=== PATIENT | male | born 1945 | race Caucasian/White ===

== ENCOUNTER 2016-10-01 07:32 | Outpatient (CLI) | payer MEDICARE, OTHER | END 2016-10-01 07:33 | disposition home or self-care (01) | DX: I25.10 Atherosclerotic heart disease of native coronary artery without angina pectoris (principal); Z79.899 Other long term (current) drug therapy; Z12.5 Encounter for screening for malignant neoplasm of prostate; I10 Essential (primary) hypertension; R73.09 Other abnormal glucose | CPT/HCPCS: 36415; 80053; 80061; 83036; 85025; G0103 ==

== ENCOUNTER 2017-04-09 07:13 | Outpatient (CLI) | payer MEDICARE, OTHER ==
[2017-04-09 08:01] LABS: LDL CHOLESTEROL,DIRECT 90 mg/dL
== END 2017-04-09 07:14 | disposition home or self-care (01) ==
LOC: LAB 07:13
PROVIDERS: ATTEND Internal Medicine
DX: E78.2 Mixed hyperlipidemia (principal)
CPT/HCPCS: 36415; 84450; 84460

== ENCOUNTER 2017-06-11 07:31 | Outpatient (CLI) | payer MEDICARE, OTHER ==
[2017-06-11 08:06] LABS: HDL CHOLESTEROL 46 mg/dL; LDL CHOLESTEROL,DIRECT 85 mg/dL
== END 2017-06-11 07:32 | disposition home or self-care (01) ==
LOC: LAB 07:31
PROVIDERS: ATTEND Internal Medicine
DX: E78.5 Hyperlipidemia, unspecified (principal)
CPT/HCPCS: 36415; 83718; 84450; 84460

== ENCOUNTER 2017-09-14 12:48 | Emergency (ER) | payer MEDICARE, OTHER ==
[2017-09-14 13:22] LABS: BASOPHILS # (AUTO) 0.1 10^3/uL (0.0-0.1); BASOPHILS % (AUTO) 0.7 %; EOSINOPHILS # (AUTO) 0.1 10^3/uL (0.0-0.7); HGB - HEMOGLOBIN 16.9 g/dL (14.0-18.0); LYMPHOCYTES # (AUTO) 2.1 10^3/uL (1.5-3.5); LYMPHOCYTES % (AUTO) 27.3 %; MEAN CORPUSCULAR HEMOGLOBIN 31.3 pg (27.0-31.0); MEAN CORPUSCULAR HGB CONC 34.9 g/dL (32.0-36.0); MEAN CORPUSCULAR VOLUME 89.7 fL (80.0-94.0); MEAN PLATELET VOLUME 8.4 fL (7.4-11.4); MONOCYTES # (AUTO) 0.4 10^3/uL (0.0-1.0); MONOCYTES % (AUTO) 5.7 %; NEUTROPHILS % (AUTO) 65.3 %; PLT - PLATELET COUNT 173 10^3/uL (130-450); RED BLOOD COUNT 5.39 10^6/uL (4.70-6.10); RED CELL DISTRIBUTION WIDTH 13.4 % (12.0-15.0); WHITE BLOOD COUNT 7.6 x10^3/uL (4.8-10.8)
[2017-09-14 13:40] LABS: ALBUMIN 4.2 g/dL (3.2-5.5); ALBUMIN/GLOBULIN RATIO 1.6 (1.0-2.2); BILIRUBIN,TOTAL 1.5 mg/dL (0.2-1.0); TOTAL PROTEIN 6.9 g/dL (6.7-8.2)
--- NOTE | 2017-09-14 13:54 | XRAY Report ---
EXAM: CHEST RADIOGRAPHY EXAM DATE: 09/14/2017 01:40 PM. CLINICAL HISTORY: Chest pain. COMPARISON: None. TECHNIQUE: 2 views. FINDINGS: Lungs/Pleura: No focal consolidation evident. No pleural effusion. No pneumothorax. Normal volumes. Mediastinum: Heart and mediastinal contours are unremarkable. Other: None. IMPRESSION: No radiographically apparent acute abnormality in the chest. [facility] Referring Provider Line: [phone] SITE ID: [id number]
[2017-09-14 13:58] VITALS: BP 134/94
--- NOTE | 2017-09-14 14:11 | ED Physician Documentation ---
PD HPI CHEST PAIN - Stated complaint Stated Complaint: CP - Chief complaint Chief Complaint: Cardiac - History obtained from History obtained from: Patient - History of Present Illness Timing - onset: Other (He had an TX with 2 stents about 9 years ago. Last stress test 5 years ago negative per him. He had 2 episodes of chest pain today , one from 6 to 7 AM at rest, in bed. Substernal chest burning, nonradiating. A second episode at 11:30 AM, it was similar lasted about 20 minutes. During that episode he did go outside and walk around and try to walk up a hill to see if he got worse, it stayed constant but did not worsen. He was a little short of breath with that though. He is pain-free at this juncture.) Review of Systems Constitutional: denies: Fever, Chills, Sweats Cardiac: reports: Chest pain / pressure. denies: Palpitations, Pedal edema, Calf pain Respiratory: denies: Cough, Hemoptysis, Wheezing GI: denies: Abdominal Pain, Nausea PD PAST MEDICAL HISTORY - Past Medical History Cardiovascular: Hypertension, [place] Respiratory: None Endocrine/Autoimmune: None GI: None, Hemorrhoids : Benign prostate hypertrophy HEENT: None Psych: None Musculoskeletal: None Derm: None - Past Surgical History Past Surgical History: Yes General: Colonoscopy Cardiovascular: Coronary stent, Cardiac catheterization HEENT: Tonsil/Adenoidectomy - Present Medications Home Medications: Ambulatory Orders Medication Instructions Recorded Confirmed Hydrochlorothiazide 12.5 mg PO DAILY 11/28/13 09/14/17 Nitroglycerin [Nitrostat] 0.4 mg SL ONCE PRN 11/28/13 09/14/17 Carvedilol [Coreg] 25 mg PO DAILY 09/14/17 09/14/17 Rosuvastatin Calcium [Crestor] 10 mg PO DAILY 09/14/17 09/14/17 - Allergies Allergies/Adverse Reactions: Allergies Allergy/AdvReac Type Severity Reaction Status Date / Time No Known Drug Allergies Allergy Verified 09/14/17 13:29 - Social History Does the pt smoke?: No Smoking Status: Former smoker Does the pt drink ETOH?: Yes ETOH Use: Wine Does the pt have substance abuse?: No - Immunizations Immunizations are current?: Yes PD ED PE NORMAL - Vitals Vital signs reviewed: Yes - General General: Alert and oriented X 3, No acute distress - Neck Neck: Supple, no meningeal sign, No bony TTP - Cardiac Cardiac: RRR, No murmur - Respiratory Respiratory: No respiratory distress, Clear bilaterally - Abdomen Abdomen: Soft, Non tender - Extremities Extremities: No edema, No calf tenderness / cord - Neuro Neuro: Alert and oriented X 3, Normal speech - Psych Psych: Normal mood, Normal affect Results - Vitals Vitals: Vital Signs - 24 hr 09/14/17 09/14/17 12:55 13:56 Temperature 36.7 C Heart Rate 67 63 Respiratory 18 18 Rate Blood Pressure 162/92 H 134/94 H O2 Saturation 98 97 Oxygen O2 Source Room air - EKG (time done) 1255 Rate: Rate (enter#) (60s) Rhythm: NSR [place]: Normal Intervals: Normal [place] QRS: Normal Ischemia: Normal ST segments Computer interpretation: Agree with computer - Labs Labs: Laboratory Tests 09/14/17 09/14/17 09/14/17 13:17 13:17 13:17 WBC 7.6 RBC 5.39 Hgb 16.9 Hct 48.4 MCV 89.7 MCH 31.3 H MCHC 34.9 RDW 13.4 Plt Count 173 MPV 8.4 Neut # 5.0 Lymph # 2.1 [place] # 0.4 Eos # 0.1 Baso # 0.1 Absolute Nucleated RBC 0.00 Nucleated RBC % 0.0 Sodium 138 Potassium 4.0 Chloride 102 Carbon Dioxide 26 Anion Gap 10.0 BUN 21 H Creatinine 1.0 Estimated GFR (MDRD) 74 L Glucose 153 H Calcium 9.0 Total Bilirubin 1.5 H AST 25 ALT 29 Alkaline Phosphatase 35 L Troponin I < 0.04 Total Protein 6.9 Albumin 4.2 Globulin 2.7 Albumin/Globulin Ratio 1.6 Lipase 27 PD MEDICAL DECISION MAKING - ED course ED course: 9-year-old gentleman with resolved chest pain, somewhat atypical and it did not worsen with exertion. That said he has a compelling history otherwise. Spoke with his primary care physician, Dr. Leahy at 2:10 PM who will schedule an expedited stress test. Wants him to continue his beta blockade, plans nuclear component. Departure - Departure Disposition: Home, Self Care Clinical Impression: Chest pain Qualifiers: Chest pain type: unspecified Qualified Code(s): R07.9 - Chest pain, unspecified Condition: Good Record reviewed to determine appropriate education?: Yes Instructions: ED Chest Pain Atypical Unkn Cause Comments: Continue your coreg, And the other medication. Dr Leahy will call you to schedule the stress. Return immediately (do not try to walk uphill) if you have recurrent chest pain.
== END 2017-09-14 14:21 | disposition home or self-care (01) ==
LOC: ED 12:48
DX: R07.9 Chest pain, unspecified (principal); I25.2 Old myocardial infarction; Z95.5 Presence of coronary angioplasty implant and graft
CPT/HCPCS: 36415; 71046; 80053; 83690; 84484; 85025; 93005; 99283; 99284

== ENCOUNTER 2017-09-28 10:47 | Outpatient (CLI) | payer MEDICARE, OTHER ==
[2017-09-28] MEDS: ADENOSINE 12 MG/4 ML VIAL IVP ONE (14:53)
[2017-09-28 15:05] VITALS: BP 140/86
--- NOTE | 2017-09-29 09:01 | Nuclear Medicine Report ---
EXAM: NUCLEAR MEDICINE MYOCARDIAL PERFUSION STRESS AND REST EXAM EXAM DATE: 09/28/2017 03:04 PM. CLINICAL HISTORY: Coronary artery disease. COMPARISON: Chest x-ray 09/14/2017, cardiac blood pool exam 04/20/2007. TECHNIQUE: Patient given 10.1 mCi technetium 99m sestamibi IV for the rest portion of the study. Card iac SPECT scintigraphy performed with multiplanar reformats. After an appropriate delay, patient given intravenous adenosine for pharmacologic stress. After this, patient given 42.8 mCi technetium 99m sestamibi IV. Cardiac gated SPECT scintigraphy performed with multiplanar reformats, wall motion analysis and left ventricular ejection fraction estimation. FINDINGS: There is a moderate-sized focus of mild to moderate decreased activity in the inferolateral basilar l eft ventricle on stress which partially normalizes on rest. Small core of moderate decreased activity in the inferior basilar wall, fixed on stress and rest. Moderate decreased activity of the apex, fixed. Wall motion demonstrates mild inferior basilar hypokinesia. Left ventricular ejection fraction estimated at 61%. IMPRESSION: 1. Moderate-sized focus of mild to moderate ischemia inferior lateral basilar wall. 2. Small inferior basilar infarct. 3. Apical infarct versus apical thinning. 4. Left ventricular ejection fraction estimated at 61%. [facility] Referring Provider Line: [phone] SITE ID: [id number]
--- NOTE | 2017-09-29 09:07 | CARDIAC PROCEDURE NOTE ---
DATE OF SERVICE: 09/28/2017 Physician: Chuy Leahy MD DATE OF SERVICE: 09/28/2017 PROCEDURE: Adenosine infusion for sestamibi myocardial imaging. INDICATIONS: A 72-year-old male with known coronary disease and a recent episode of recurrent chest pain. He is on beta blockers. PROCEDURE IN DETAIL: The patient received adenosine and sestamibi per nuclear medicine protocol. He experienced some vague shoulder and back discomfort, a sense of breathlessness, and some facial flushing. Otherwise, there were no untoward side effects. His EKG at the onset demonstrated very slight T-wave abnormality in lead III. Towards the end of the infusion and immediately thereafter, there were some subtle nondiagnostic ST and T-wave changes in lead III and aVF. IMPRESSION: Unremarkable adenosine infusion performed for sestamibi myocardial imaging. See nuclear medicine report for details. TD: 09/29/2017 08:33
== END 2017-09-28 10:48 | disposition home or self-care (01) ==
LOC: DI 10:47
PROVIDERS: ATTEND Internal Medicine
DX: I25.9 Chronic ischemic heart disease, unspecified (principal); I25.2 Old myocardial infarction
CPT/HCPCS: 78452; 93017; A9500; J0153

== ENCOUNTER 2017-10-23 09:09 | Outpatient (CLI) | payer MEDICARE, OTHER ==
[2017-10-23 09:51] LABS: BASOPHILS # (AUTO) 0.1 10^3/uL (0.0-0.1); BASOPHILS % (AUTO) 0.8 %; EOSINOPHILS % (AUTO) 0.8 %; HGB - HEMOGLOBIN 17.1 g/dL (14.0-18.0); LYMPHOCYTES # (AUTO) 1.6 10^3/uL (1.5-3.5); LYMPHOCYTES % (AUTO) 26.8 %; MEAN CORPUSCULAR HEMOGLOBIN 31.2 pg (27.0-31.0); MEAN CORPUSCULAR HGB CONC 34.9 g/dL (32.0-36.0); MEAN CORPUSCULAR VOLUME 89.4 fL (80.0-94.0); MEAN PLATELET VOLUME 8.6 fL (7.4-11.4); MONOCYTES # (AUTO) 0.4 10^3/uL (0.0-1.0); MONOCYTES % (AUTO) 6.7 %; NEUTROPHILS % (AUTO) 64.9 %; PLT - PLATELET COUNT 152 10^3/uL (130-450); RED BLOOD COUNT 5.48 10^6/uL (4.70-6.10); RED CELL DISTRIBUTION WIDTH 13.3 % (12.0-15.0); WHITE BLOOD COUNT 6.1 x10^3/uL (4.8-10.8)
[2017-10-23 10:00] LABS: CALCIUM 8.6 mg/dL (8.5-10.3)
== END 2017-10-23 09:10 | disposition home or self-care (01) ==
LOC: LAB 09:09
PROVIDERS: ATTEND Internal Medicine Cardiovascular Disease
DX: I25.10 Atherosclerotic heart disease of native coronary artery without angina pectoris (principal); I20.8 Other forms of angina pectoris
CPT/HCPCS: 36415; 80048; 85025

== ENCOUNTER 2017-11-30 08:10 | Outpatient (CLI) | payer MEDICARE, OTHER ==
[2017-11-30 08:49] LABS: CALCIUM 8.8 mg/dL (8.5-10.3)
== END 2017-11-30 08:11 | disposition home or self-care (01) ==
LOC: LAB 08:10
PROVIDERS: ATTEND Internal Medicine Cardiovascular Disease
DX: I25.10 Atherosclerotic heart disease of native coronary artery without angina pectoris (principal); I10 Essential (primary) hypertension; E78.00 Pure hypercholesterolemia, unspecified; Z95.9 Presence of cardiac and vascular implant and graft, unspecified
CPT/HCPCS: 36415; 80048

== ENCOUNTER 2017-12-22 07:15 | Outpatient (CLI) | payer MEDICARE, OTHER ==
[2017-12-22 07:54] LABS: ALBUMIN 4.1 g/dL (3.2-5.5); ALBUMIN/GLOBULIN RATIO 1.8 (1.0-2.2); ALKALINE PHOSPHATASE 33 IU/L (42-121); ALT ALANINE AMINOTRANSFERASE 33 IU/L (10-60); AST ASPARTATE AMINOTRANSFERASE 30 IU/L (10-42); BUN - BLOOD UREA NITROGEN 19 mg/dL (6-20); CALCIUM 8.7 mg/dL (8.5-10.3); CARBON DIOXIDE - CO2 29 mmol/L (21-32); CHLORIDE 105 mmol/L (101-111); CHOL/HDL RATIO 3.1 (<5.0); CHOLESTEROL 137 mg/dL; CREATININE 0.8 mg/dL (0.6-1.2); GFR - MDRD 96 (>89); GLUCOSE 101 mg/dL (70-100); HDL CHOLESTEROL 44 mg/dL; LDL CHOLESTEROL,CALCULATED 72 mg/dL; LDL/HDL RATIO 1.6 (<3.6); SODIUM 140 mmol/L (135-145); TOTAL PROTEIN 6.4 g/dL (6.7-8.2); VLDL CHOLESTEROL 21 mg/dL
[2017-12-22 08:07] LABS: HB2 TOTAL 17.5 g/dL; HEMOGLOBIN A1C 0.67 g/dL; HEMOGLOBIN A1C % 5.7 % (4.6-6.2)
== END 2017-12-22 07:16 | disposition home or self-care (01) ==
LOC: LAB 07:15
PROVIDERS: ATTEND Internal Medicine
DX: I25.10 Atherosclerotic heart disease of native coronary artery without angina pectoris (principal); E78.5 Hyperlipidemia, unspecified; R73.02 Impaired glucose tolerance (oral)
CPT/HCPCS: 36415; 80053; 80061; 83036; 83721

== ENCOUNTER 2019-03-11 07:18 | Outpatient (CLI) | payer MEDICARE, OTHER ==
[2019-03-11 07:51] LABS: BASOPHILS # (AUTO) 0.1 10^3/uL (0.0-0.1); BASOPHILS % (AUTO) 0.8 %; EOSINOPHILS # (AUTO) 0.1 10^3/uL (0.0-0.7); EOSINOPHILS % (AUTO) 1.6 %; HGB - HEMOGLOBIN 16.7 g/dL (14.0-18.0); LYMPHOCYTES # (AUTO) 1.6 10^3/uL (1.5-3.5); LYMPHOCYTES % (AUTO) 26.6 %; MEAN CORPUSCULAR HEMOGLOBIN 31.2 pg (27.0-31.0); MEAN CORPUSCULAR HGB CONC 34.3 g/dL (32.0-36.0); MEAN CORPUSCULAR VOLUME 90.9 fL (80.0-94.0); MEAN PLATELET VOLUME 9.8 fL (7.4-11.4); MONOCYTES # (AUTO) 0.5 10^3/uL (0.0-1.0); MONOCYTES % (AUTO) 7.9 %; NEUTROPHILS # (AUTO) 3.8 10^3/uL (1.5-6.6); NEUTROPHILS % (AUTO) 62.8 %; PLT - PLATELET COUNT 172 10^3/uL (130-450); RED BLOOD COUNT 5.36 10^6/uL (4.70-6.10); RED CELL DISTRIBUTION WIDTH 12.7 % (12.0-15.0); WHITE BLOOD COUNT 6.1 x10^3/uL (4.8-10.8)
[2019-03-11 08:02] LABS: ALBUMIN/GLOBULIN RATIO 1.5 (1.0-2.2); ALKALINE PHOSPHATASE 32 IU/L (42-121); ALT ALANINE AMINOTRANSFERASE 20 IU/L (10-60); AST ASPARTATE AMINOTRANSFERASE 19 IU/L (10-42); BILIRUBIN,TOTAL 1.5 mg/dL (0.2-1.0); BUN - BLOOD UREA NITROGEN 22 mg/dL (6-20); CARBON DIOXIDE - CO2 25 mmol/L (21-32); CHLORIDE 106 mmol/L (101-111); CHOLESTEROL 151 mg/dL; CREATININE 0.8 mg/dL (0.6-1.2); GFR - MDRD 95 (>89); GLUCOSE 114 mg/dL (70-100); HDL CHOLESTEROL 51 mg/dL; LDL CHOLESTEROL,CALCULATED 77 mg/dL; LDL/HDL RATIO 1.5 (<3.6); SODIUM 141 mmol/L (135-145); TOTAL PROTEIN 6.6 g/dL (6.7-8.2); VLDL CHOLESTEROL 23 mg/dL
[2019-03-11 09:05] LABS: HB2 TOTAL 17.8 g/dL; HEMOGLOBIN A1C 0.71 g/dL; HEMOGLOBIN A1C % 5.8 % (4.6-6.2)
== END 2019-03-11 07:19 | disposition home or self-care (01) ==
LOC: LAB 07:18
PROVIDERS: ATTEND Family Medicine
DX: I10 Essential (primary) hypertension (principal); I25.10 Atherosclerotic heart disease of native coronary artery without angina pectoris; R73.09 Other abnormal glucose; E78.5 Hyperlipidemia, unspecified
CPT/HCPCS: 36415; 80053; 80061; 83036; 83721; 84443; 85025

== ENCOUNTER 2020-11-09 07:10 | Outpatient (CLI) | payer MEDICARE, OTHER ==
[2020-11-09 07:36] LABS: BASOPHILS % (AUTO) 0.6 %; EOSINOPHILS # (AUTO) 0.1 10^3/uL (0.0-0.7); EOSINOPHILS % (AUTO) 1.9 %; HCT - HEMATOCRIT 48.3 % (42.0-52.0); HGB - HEMOGLOBIN 16.5 g/dL (14.0-18.0); LYMPHOCYTES % (AUTO) 32.5 %; MEAN CORPUSCULAR HEMOGLOBIN 31.4 pg (27.0-31.0); MEAN CORPUSCULAR HGB CONC 34.2 g/dL (32.0-36.0); MEAN PLATELET VOLUME 9.9 fL (7.4-11.4); MONOCYTES # (AUTO) 0.5 10^3/uL (0.0-1.0); MONOCYTES % (AUTO) 7.7 %; NEUTROPHILS # (AUTO) 3.6 10^3/uL (1.5-6.6); NEUTROPHILS % (AUTO) 57.1 %; PLT - PLATELET COUNT 182 10^3/uL (130-450); RED BLOOD COUNT 5.25 10^6/uL (4.70-6.10); RED CELL DISTRIBUTION WIDTH 12.9 % (12.0-15.0); WHITE BLOOD COUNT 6.2 x10^3/uL (4.8-10.8)
[2020-11-09 07:47] LABS: ALBUMIN 3.9 g/dL (3.2-5.5); ALBUMIN/GLOBULIN RATIO 1.3 (1.0-2.2); ALKALINE PHOSPHATASE 32 IU/L (42-121); ALT ALANINE AMINOTRANSFERASE 26 IU/L (10-60); AST ASPARTATE AMINOTRANSFERASE 20 IU/L (10-42); BILIRUBIN,TOTAL 1.4 mg/dL (0.2-1.0); BUN - BLOOD UREA NITROGEN 28 mg/dL (6-20); CALCIUM 9.1 mg/dL (8.5-10.3); CARBON DIOXIDE - CO2 25 mmol/L (21-32); CHLORIDE 104 mmol/L (101-111); CHOL/HDL RATIO 3.1 (<5.0); CHOLESTEROL 171 mg/dL; GFR - MDRD 73 (>89); GLUCOSE 117 mg/dL (70-100); HDL CHOLESTEROL 55 mg/dL; LDL CHOLESTEROL,CALCULATED 89 mg/dL; LDL/HDL RATIO 1.6 (<3.6); SODIUM 139 mmol/L (135-145); TRIGLYCERIDES 133 mg/dL; VLDL CHOLESTEROL 27 mg/dL
[2020-11-09 07:58] LABS: THYROID STIMULATING HORMONE 3.03 uIU/mL (0.34-5.60)
== END 2020-11-09 07:11 | disposition home or self-care (01) ==
LOC: LAB 07:10
PROVIDERS: ATTEND Family Medicine
DX: N40.0 Benign prostatic hyperplasia without lower urinary tract symptoms (principal); I25.10 Atherosclerotic heart disease of native coronary artery without angina pectoris; I10 Essential (primary) hypertension; E78.5 Hyperlipidemia, unspecified
CPT/HCPCS: 36415; 80053; 80061; 83721; 84153; 84443; 85025

== ENCOUNTER 2021-11-27 07:38 | Outpatient (CLI) | payer MEDICARE, OTHER ==
[2021-11-27 07:52] LABS: BASOPHILS % (AUTO) 0.6 %; EOSINOPHILS # (AUTO) 0.1 10^3/uL (0.0-0.7); EOSINOPHILS % (AUTO) 1.4 %; HCT - HEMATOCRIT 46.5 % (42.0-52.0); HGB - HEMOGLOBIN 15.9 g/dL (14.0-18.0); LYMPHOCYTES # (AUTO) 1.3 10^3/uL (1.5-3.5); LYMPHOCYTES % (AUTO) 26.5 %; MEAN CORPUSCULAR HEMOGLOBIN 30.5 pg (27.0-31.0); MEAN CORPUSCULAR HGB CONC 34.2 g/dL (32.0-36.0); MEAN CORPUSCULAR VOLUME 89.3 fL (80.0-94.0); MEAN PLATELET VOLUME 9.8 fL (7.4-11.4); MONOCYTES # (AUTO) 0.4 10^3/uL (0.0-1.0); MONOCYTES % (AUTO) 8.4 %; NEUTROPHILS # (AUTO) 3.1 10^3/uL (1.5-6.6); NEUTROPHILS % (AUTO) 63.1 %; PLT - PLATELET COUNT 189 10^3/uL (130-450); RED BLOOD COUNT 5.21 10^6/uL (4.70-6.10); RED CELL DISTRIBUTION WIDTH 12.7 % (12.0-15.0)
[2021-11-27 08:34] LABS: ALBUMIN 3.9 g/dL (3.2-5.5); ALBUMIN/GLOBULIN RATIO 1.3 (1.0-2.2); ALKALINE PHOSPHATASE 30 IU/L (42-121); ALT ALANINE AMINOTRANSFERASE 21 IU/L (10-60); AST ASPARTATE AMINOTRANSFERASE 19 IU/L (10-42); BILIRUBIN,TOTAL 1.4 mg/dL (0.2-1.0); BUN - BLOOD UREA NITROGEN 27 mg/dL (6-20); CALCIUM 8.7 mg/dL (8.5-10.3); CARBON DIOXIDE - CO2 25 mmol/L (21-32); CHLORIDE 106 mmol/L (101-111); CHOL/HDL RATIO 2.8 (<5.0); CHOLESTEROL 146 mg/dL; GFR - MDRD 73 (>89); GLUCOSE 112 mg/dL (70-100); HDL CHOLESTEROL 53 mg/dL; LDL CHOLESTEROL,CALCULATED 73 mg/dL; LDL/HDL RATIO 1.4 (<3.6); POTASSIUM 3.9 mmol/L (3.5-5.0); SODIUM 138 mmol/L (135-145); TOTAL PROTEIN 6.8 g/dL (6.7-8.2); TRIGLYCERIDES 98 mg/dL; VLDL CHOLESTEROL 20 mg/dL
[2021-11-27 08:48] LABS: THYROID STIMULATING HORMONE 2.42 uIU/mL (0.34-5.60)
== END 2021-11-27 07:39 | disposition home or self-care (01) ==
LOC: LAB 07:38
PROVIDERS: ATTEND Family Medicine
DX: I10 Essential (primary) hypertension (principal); I25.10 Atherosclerotic heart disease of native coronary artery without angina pectoris
CPT/HCPCS: 36415; 80053; 80061; 83721; 84443; 85025

== ENCOUNTER 2022-01-11 15:39 | Emergency (ER) | payer MEDICARE, OTHER ==
[2022-01-11 15:59] LABS: BASOPHILS % (AUTO) 0.5 %; EOSINOPHILS # (AUTO) 0.1 10^3/uL (0.0-0.7); EOSINOPHILS % (AUTO) 0.8 %; HCT - HEMATOCRIT 47.2 % (42.0-52.0); HGB - HEMOGLOBIN 16.4 g/dL (14.0-18.0); LYMPHOCYTES # (AUTO) 2.3 10^3/uL (1.5-3.5); LYMPHOCYTES % (AUTO) 27.9 %; MEAN CORPUSCULAR HEMOGLOBIN 30.9 pg (27.0-31.0); MEAN CORPUSCULAR HGB CONC 34.7 g/dL (32.0-36.0); MEAN CORPUSCULAR VOLUME 89.1 fL (80.0-94.0); MEAN PLATELET VOLUME 9.7 fL (7.4-11.4); MONOCYTES # (AUTO) 0.8 10^3/uL (0.0-1.0); NEUTROPHILS # (AUTO) 5.1 10^3/uL (1.5-6.6); NEUTROPHILS % (AUTO) 61.7 %; PLT - PLATELET COUNT 205 10^3/uL (130-450); RED CELL DISTRIBUTION WIDTH 12.7 % (12.0-15.0); WHITE BLOOD COUNT 8.3 x10^3/uL (4.8-10.8)
--- NOTE | 2022-01-11 16:04 | ED Physician Documentation ---
History of Present Illness - Stated complaint Stated Complaint: FATIGUE/CHEST TIGHTNESS - Chief complaint Chief Complaint: Cardiac - History obtained from History obtained from: Patient, Family - History of Present Illness Timing: How many days ago (5) Pain level max: 2 Pain level now: 1 - Additonal information Additional information: Patient is a 76-year-old male who presents to the emergency department complaining of chest tightness. He states been going on for the past 5 days. He has felt tired as well. He states nothing really makes it better or worse. It has been constant. Does not feel similar to his prior heart attacks. No change with palpation, movement, exertion. He has a history of cardiac stents in 2007. Review of Systems Constitutional: denies: Fever, Chills Nose: reports: Rhinorrhea / runny nose Throat: denies: Sore throat Cardiac: denies: Chest pain / pressure, Palpitations Respiratory: denies: Cough GI: denies: Abdominal Pain, Nausea, Vomiting, Diarrhea Skin: denies: Rash Musculoskeletal: denies: Neck pain, Back pain Neurologic: denies: Headache PD PAST MEDICAL HISTORY - Past Medical History Cardiovascular: Hypertension, High cholesterol, [place] Respiratory: None Endocrine/Autoimmune: None GI: Hemorrhoids : Benign prostate hypertrophy HEENT: None Psych: None Musculoskeletal: None Derm: None - Past Surgical History Past Surgical History: Yes General: Colonoscopy Cardiovascular: Coronary stent, Cardiac catheterization HEENT: Tonsil/Adenoidectomy - Present Medications Home Medications: Ambulatory Orders Medication Instructions Recorded Confirmed Nitroglycerin [Nitrostat] 0.4 mg SL ONCE PRN 11/28/13 01/11/22 hydroCHLOROthiazide 12.5 mg PO DAILY 11/28/13 01/11/22 [Hydrochlorothiazide] Rosuvastatin Calcium [Crestor] 20 mg PO DAILY 09/14/17 01/11/22 Aspirin [Aspirin EC] 81 mg PO DAILY 01/11/22 01/11/22 Carvedilol [Coreg] 6.25 mg PO BID 01/11/22 01/11/22 Valsartan [Diovan] 40 mg PO DAILY 01/11/22 01/11/22 - Allergies Allergies/Adverse Reactions: Allergies Allergy/AdvReac Type Severity Reaction Status Date / Time No Known Drug Allergies Allergy Verified 01/11/22 15:47 - Social History Does the pt smoke?: No Smoking Status: Former smoker Does the pt drink ETOH?: Yes Does the pt have substance abuse?: No - Immunizations Immunizations are current?: Yes PD ED PE NORMAL - Vitals Vital signs reviewed: Yes - General General: Alert and oriented X 3, No acute distress, Well developed/nourished - HEENT HEENT: Moist mucous membranes - Neck Neck: Supple, no meningeal sign - Cardiac Cardiac: RRR, Strong equal pulses - Respiratory Respiratory: No respiratory distress, Clear bilaterally - Abdomen Abdomen: Soft, Non tender, Non distended - Derm Derm: Warm and dry - Extremities Extremities: No edema, No calf tenderness / cord - Neuro Neuro: Alert and oriented X 3 - Psych Psych: Normal mood, Normal affect Results - Vitals Vitals: Vital Signs - 24 hr 01/11/22 01/11/22 01/11/22 15:44 16:17 17:03 Temperature 36.4 C L Heart Rate 66 61 57 L Respiratory 20 14 18 Rate Blood Pressure 161/82 H 157/82 H 151/82 H O2 Saturation 96 97 97 01/11/22 17:19 Temperature 36.6 C Heart Rate 58 L Respiratory 16 Rate Blood Pressure 151/82 H O2 Saturation 97 Oxygen O2 Source Room air - EKG (time done) 1551 Rate: Rate (enter#) (64) Rhythm: NSR [place]: Normal Intervals: Normal [place] QRS: Normal Ischemia: Normal ST segments, Q waves (III, aVF) - Labs Labs: Laboratory Tests 01/11/22 01/11/22 01/11/22 15:50 15:50 15:50 WBC 8.3 RBC 5.30 Hgb 16.4 Hct 47.2 MCV 89.1 MCH 30.9 MCHC 34.7 RDW 12.7 Plt Count 205 MPV 9.7 Neut # (Auto) 5.1 Lymph # (Auto) 2.3 [place] # (Auto) 0.8 Eos # (Auto) 0.1 Baso # (Auto) 0.0 Absolute Nucleated RBC 0.00 Nucleated RBC % 0.0 Sodium 138 Potassium 3.9 Chloride 101 Carbon Dioxide 27 Anion Gap 10.0 BUN 22 H Creatinine 1.0 Estimated GFR (MDRD) 73 L Glucose 148 H Calcium 8.9 Total Bilirubin 1.2 H AST 20 ALT 23 Alkaline Phosphatase 32 L Troponin I High Sens 8.5 Total Protein 6.9 Albumin 3.9 Globulin 3.0 Albumin/Globulin Ratio 1.3 Lipase 36 Nasal Adenovirus (PCR) Nasal B. parapertussis DNA (PCR) Nasal Coronavir 229E PCR Nasal Coronavir HKU1 PCR Nasal Coronavir NL63 PCR Nasal Coronavir OC43 PCR Nasal Enterovir/Rhinovir PCR Nasal Influenza B PCR Nasal Influenza A PCR Nasal Parainfluen 1 PCR Nasal Parainfluen 2 PCR Nasal Parainfluen 3 PCR Nasal Parainfluen 4 PCR Nasal RSV (PCR) Nasal B.pertussis DNA PCR Nasal C.pneumoniae (PCR) [place] Human Metapneumo PCR Nasal M.pneumoniae (PCR) Nasal SARS-CoV-2 (PCR) 01/11/22 16:10 WBC RBC Hgb Hct MCV MCH MCHC RDW Plt Count MPV Neut # (Auto) Lymph # (Auto) [place] # (Auto) Eos # (Auto) Baso # (Auto) Absolute Nucleated RBC Nucleated RBC % Sodium Potassium Chloride Carbon Dioxide Anion Gap BUN Creatinine Estimated GFR (MDRD) Glucose Calcium Total Bilirubin AST ALT Alkaline Phosphatase Troponin I High Sens Total Protein Albumin Globulin Albumin/Globulin Ratio Lipase Nasal Adenovirus (PCR) NOT DETECTED Nasal B. parapertussis DNA (PCR) NOT DETECTED Nasal Coronavir 229E PCR NOT DETECTED Nasal Coronavir HKU1 PCR NOT DETECTED Nasal Coronavir NL63 PCR NOT DETECTED Nasal Coronavir OC43 PCR NOT DETECTED Nasal Enterovir/Rhinovir PCR NOT DETECTED Nasal Influenza B PCR NOT DETECTED Nasal Influenza A PCR NOT DETECTED Nasal Parainfluen 1 PCR NOT DETECTED Nasal Parainfluen 2 PCR NOT DETECTED Nasal Parainfluen 3 PCR NOT DETECTED Nasal Parainfluen 4 PCR NOT DETECTED Nasal RSV (PCR) NOT DETECTED Nasal B.pertussis DNA PCR NOT DETECTED Nasal C.pneumoniae (PCR) NOT DETECTED [place] Human Metapneumo PCR NOT DETECTED Nasal M.pneumoniae (PCR) NOT DETECTED Nasal SARS-CoV-2 (PCR) NOT DETECTED - Rads (name of study) Chest x-ray Radiology: Final report received, EMP read contemporaneously, See rad report (No acute disease) PD MEDICAL DECISION MAKING - ED course Complexity details: reviewed old records, reviewed results, re-evaluated patient, considered differential (No ST elevation [place], no aortic dissection, no PE, no tension pneumothorax, no aortic aneurysm), d/w patient, d/w family ED course: Patient is well-appearing, nontoxic. Afebrile. No hypoxia. No respiratory distress. No significant findings on EKG. Negative troponin after 5 days of symptoms. Has known cardiac disease. We will have him follow-up with his doctor next week for further care. Patient is well-appearing, nontoxic. Patient counseled regarding signs and symptoms for which I believe and urgent re-evaluation would be necessary. Patient with good understanding of and agreement to plan and is comfortable going home at this time This document was made in part using voice recognition software. While efforts are made to proofread this document, sound alike and grammatical errors may occur. Departure - Departure Disposition: 01 Home, Self Care Clinical Impression: Chest pain Qualifiers: Chest pain type: unspecified Qualified Code(s): R07.9 - Chest pain, unspecified Condition: Good Instructions: ED Chest Pain Atypical Unkn Cause Follow-Up: Edwin Posadas MD [Primary Care Provider] - Within 1 week Comments: Please follow-up with your doctor for further care. Your EKG, chest x-ray and blood work did not show any acute abnormalities today. Please return if you worsen. There is a respiratory swab pending and I will call you if there are any positive results. Discharge Date/Time: 01/11/22 17:20
[2022-01-11 16:13] LABS: ALBUMIN 3.9 g/dL (3.2-5.5); ALBUMIN/GLOBULIN RATIO 1.3 (1.0-2.2); BILIRUBIN,TOTAL 1.2 mg/dL (0.2-1.0); CALCIUM 8.9 mg/dL (8.5-10.3); POTASSIUM 3.9 mmol/L (3.5-5.0); TOTAL PROTEIN 6.9 g/dL (6.7-8.2)
--- NOTE | 2022-01-11 16:47 | XRAY Report ---
PROCEDURE: Chest 1 View X-Ray INDICATIONS: Chest Pain TECHNIQUE: One view of the chest was acquired. COMPARISON: 09/14/2017 FINDINGS: Surgical changes and devices: None. Lungs and pleura: No pleural effusions or pneumothorax. Lungs are clear. Mediastinum: Mediastinal contours appear normal. Heart size is normal. Atherosclerotic vascular ca lcification noted in the aortic arch. Bones and chest wall: No suspicious bony lesions. Overlying soft tissues appear unremarkable. IMPRESSION: No acute cardiopulmonary findings Reviewed by: Avtar Cabrera MD on 01/11/2022 3:46 PM [facility] Approved by: Avtar Cabrera MD on 01/11/2022 3:46 PM [facility] Station ID: [id number]
[2022-01-11 17:03] VITALS: BP 151/82
[2022-01-11 17:15] LABS: B. PARAPERTUSSIS- RESP PCR PAN NOT DETECTED; B. PERTUSSIS- RESP PCR PANEL NOT DETECTED; C. PNEUMONIAE- RESP PCR PANEL NOT DETECTED; CORONAVIRUS 229E-RESP PCR NOT DETECTED; CORONAVIRUS HKU1-RESP PCR NOT DETECTED; CORONAVIRUS NL63-RESP PCR NOT DETECTED; CORONAVIRUS OC43-RESP PCR NOT DETECTED; HUMAN METAPNEUMOVIRUS NOT DETECTED; INFLUENZA A- RESP PCR PANEL NOT DETECTED; INFLUENZA B - RESP PCR PANEL NOT DETECTED; M. PNEUMONIAE- RESP PCR PANEL NOT DETECTED; PARAINFLUENZA VIRUS 1 NOT DETECTED; PARAINFLUENZA VIRUS 2 NOT DETECTED; PARAINFLUENZA VIRUS 3 NOT DETECTED; PARAINFLUENZA VIRUS 4 NOT DETECTED; RHINOVIRUS/ENTEROVIRUS NOT DETECTED; RSV- RESP PCR PANEL NOT DETECTED; SARS-CoV-2 -RESP PCR PANEL NOT DETECTED
== END 2022-01-11 17:20 | disposition home or self-care (01) ==
LOC: ED 15:39
DX: R07.9 Chest pain, unspecified (principal); Z87.891 Personal history of nicotine dependence; Z20.822 Contact with and (suspected) exposure to COVID-19
CPT/HCPCS: 36415; 80053; 83690; 84484; 85025; 87633; 93005; 99284

== ENCOUNTER 2023-04-07 07:02 | Outpatient (CLI) | payer MEDICARE, OTHER ==
[2023-04-07 07:18] LABS: BASOPHILS % (AUTO) 0.6 %; EOSINOPHILS # (AUTO) 0.1 10^3/uL (0.0-0.7); EOSINOPHILS % (AUTO) 1.8 %; HCT - HEMATOCRIT 46.6 % (42.0-52.0); HGB - HEMOGLOBIN 16.1 g/dL (14.0-18.0); LYMPHOCYTES # (AUTO) 1.7 10^3/uL (1.5-3.5); MEAN CORPUSCULAR HEMOGLOBIN 31.1 pg (27.0-31.0); MEAN CORPUSCULAR HGB CONC 34.5 g/dL (32.0-36.0); MEAN CORPUSCULAR VOLUME 90.1 fL (80.0-94.0); MEAN PLATELET VOLUME 9.7 fL (7.4-11.4); MONOCYTES # (AUTO) 0.6 10^3/uL (0.0-1.0); MONOCYTES % (AUTO) 9.7 %; NEUTROPHILS # (AUTO) 3.7 10^3/uL (1.5-6.6); NEUTROPHILS % (AUTO) 59.6 %; PLT - PLATELET COUNT 166 10^3/uL (130-450); RED BLOOD COUNT 5.17 10^6/uL (4.70-6.10); WHITE BLOOD COUNT 6.2 x10^3/uL (4.8-10.8)
[2023-04-07 07:38] LABS: ALBUMIN/GLOBULIN RATIO 1.5 (1.0-2.2); ALKALINE PHOSPHATASE 31 IU/L (42-121); ALT ALANINE AMINOTRANSFERASE 25 IU/L (10-60); AST ASPARTATE AMINOTRANSFERASE 22 IU/L (10-42); BILIRUBIN,TOTAL 1.5 mg/dL (0.2-1.0); BUN - BLOOD UREA NITROGEN 20 mg/dL (6-20); CALCIUM 8.9 mg/dL (8.5-10.3); CARBON DIOXIDE - CO2 28 mmol/L (21-32); CHLORIDE 105 mmol/L (101-111); CHOL/HDL RATIO 2.9 (<5.0); CHOLESTEROL 147 mg/dL; CREATININE 0.9 mg/dL (0.6-1.3); GFR - MDRD 82 (>89); GLUCOSE 111 mg/dL (74-104); HDL CHOLESTEROL 50 mg/dL; LDL CHOLESTEROL,CALCULATED 64 mg/dL; LDL/HDL RATIO 1.3 (<3.6); POTASSIUM 3.7 mmol/L (3.5-4.5); SODIUM 137 mmol/L (135-145); TOTAL PROTEIN 6.6 g/dL (6.4-8.9); TRIGLYCERIDES 164 mg/dL (48-352); VLDL CHOLESTEROL 33 mg/dL
[2023-04-07 07:50] LABS: THYROID STIMULATING HORMONE 2.06 uIU/mL (0.34-5.60)
[2023-04-07 10:38] LABS: ESTIMATED AVERAGE GLUCOSE 128 mg/dL (70-100); HEMOGLOBIN A1c% 6.1 % (4.27-6.07)
== END 2023-04-07 07:03 | disposition home or self-care (01) ==
LOC: LAB 07:02
PROVIDERS: ATTEND Family Medicine
DX: I10 Essential (primary) hypertension (principal); I25.10 Atherosclerotic heart disease of native coronary artery without angina pectoris; E78.5 Hyperlipidemia, unspecified
CPT/HCPCS: 36415; 80053; 80061; 83036; 83721; 84443; 85025

== ENCOUNTER 2023-09-09 15:45 | Outpatient (CLI) | payer MEDICARE, OTHER ==
[2023-09-09 17:46] LABS: CALCIUM 9.1 mg/dL (8.5-10.3); CREATININE 0.9 mg/dL (0.6-1.3); URIC ACID 6.2 mg/dL (4.4-7.6)
== END 2023-09-09 16:00 | disposition home or self-care (01) ==
LOC: LAB.N 15:45
PROVIDERS: ATTEND Family Medicine
DX: I10 Essential (primary) hypertension (principal); I25.5 Ischemic cardiomyopathy; R43.9 Unspecified disturbances of smell and taste; T14.8XXA Other injury of unspecified body region, initial encounter
CPT/HCPCS: 36415; 80048; 82550; 84550

== ENCOUNTER 2024-01-21 08:45 | Outpatient (CLI) | payer MEDICARE, OTHER ==
--- NOTE | 2024-01-21 12:56 | XRAY Report ---
PROCEDURE: Chest 2V INDICATIONS: DYSPNEA TECHNIQUE: 2 views of the chest were acquired. COMPARISON: Chest radiographs 01/11/2022. FINDINGS: Surgical changes and devices: None. Lungs and pleura: No pleural effusions or pneumothorax. Lungs are clear. Mediastinum: Mediastinal contours appear normal. Heart size is normal. Bones and chest wall: No suspicious bony lesions. Overlying soft tissues appear unremarkable. IMPRESSION: No acute cardiopulmonary process. Reviewed by: Miguel Angel Hernandez MD on 01/21/2024 12:54 PM PDT Approved by: Miguel Angel Hernandez MD on 01/21/2024 12:54 PM PDT Station ID: [id number]
== END 2024-01-21 08:46 | disposition home or self-care (01) ==
LOC: DI 08:45
PROVIDERS: ATTEND Registered Nurse
DX: R06.09 Other forms of dyspnea (principal); R53.83 Other fatigue; R05.1 Acute cough